=== PATIENT | male | born 1995 | race Caucasian/White ===

== ENCOUNTER → 2019-11-03 | Outpatient (CLI) | payer OTHER ==
[~2019-11-03] MED LIST: ACUTANE PO; FISH OIL 1,0001 EAC5 PO; MULTIVITAMINS PO
== END ==
LOC: CAT 09:08
DX: Z13.6 Encounter for screening for cardiovascular disorders (principal); E78.00 Pure hypercholesterolemia, unspecified; I25.10 Atherosclerotic heart disease of native coronary artery without angina pectoris